=== PATIENT | male | born 1955 ===

== ENCOUNTER 2024-12-22 13:40 | Outpatient (AMB) | payer MEDICARE, SELFPAY ==
[2024-12-22 13:44] VITALS: BP 134/74; PULSE 60; O2SAT 94; BMI 39.6
--- NOTE | 2024-12-22 13:44 | MHC.PC.OV ---
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 Accompanied by: Self / Same As Patient Allergies omeprazole Adverse Reaction (Intermediate, Verified 12/22/24 14:07) vasculitis Medication List - Last Reconciled 12/22/24 by Dom Lorenzo PA-C meclizine 12.5 mg PO TID 10 days metformin 1,000 mg PO BID omeprazole 20 mg PO DAILY 30 days Tobacco use date assessed: 12/22/24 Fall risk assessment: No Falls in past year Last assessed Fall Risk: 12/22/24 Dental Screening Dental Screen Date: 12/22/24 Did you have a dental visit in the last 12 months?: Yes Did you have a dental problem in the last 6 months where you did not have access to dental care?: No Was dental information given to patient?: Patient has dentist HPI f/u DMII HPI Details Patient is 69-year-old male here today for a follow-up visit ? Patient has a past medical history significant GERD, type 2 diabetes elevated blood pressure readings, erectile dysfunction. Concern--> Insomnia is a significant concern, with reported difficulties initiating and maintaining sleep over the past several months. Previous medication trials provided by a friend led to excessive sedation without improving daytime energy, hence were discontinued. He achieves only one to two hours of sleep a night, resulting in fatigue. The patient associates frequent nighttime urination with both diabetes and potential BPH, impacting sleep quality. .. Type 2 diabetes: Patient continues on metformin 1000 b.i.d there has been a significant improvement in his blood sugars.. Today's A1c is 6.1 .. Class 2 Obesity:? Has noted weight gain since last office visit, today's BMI at 39.6. Does admit to some dietary indiscretion and being a bit less active over the winter. He does understand his BMI is well over 30 and has been working on being more physically active to reduce his weight. GERD:? He does use omeprazole on a p.r.n. basis with good effect on reducing his GERD symptoms.. We did discuss the possibility of the side effect of vasculitis as it was thought to be omeprazole in the cause of his vasculitis rash. Patient does understand in his willing to take the risk. ? PFSH Medical History Rash Left shoulder pain Obesity Left wrist fracture Surgical History Hx of colonoscopy Family History Father Diabetes mellitus Mother Diabetes mellitus Social History Housing: Apartment Alcohol intake: current Alcohol intake frequency: holidays/special occasions only Patient Tobacco Use Status: Never used Tobacco e-Cigarette/Vaping Use: Never Used Second Hand Smoke Exposure: No service: No Current occupational status: retired Cognitive needs: No Hearing needs: No Vision needs: No Questionnaire PHQ-9 Over the last 2 weeks, how often have you been bothered by any of the following problems? 1. Little interest or pleasure in doing things: not at all 2. Feeling down, depressed, or hopeless: not at all 3. Trouble falling or staying asleep, or sleeping too much: not at all 4. Feeling tired or having little energy: not at all 5. Poor appetite or overeating: not at all 6. Feeling bad about yourself - or that you are a failure or have let yourself or your family down: not at all 7. Trouble concentrating on things, such as reading the newspaper or watching television: not at all 8. Moving or speaking so slowly that other people could have noticed. Or the opposite - being so fidgety or restless that you have been moving around a lot more than usual: not at all 9. Thoughts that you would be better off or of hurting yourself in some way: not at all Total score: 0 Depression Screening Interpretation: Negative Depression Screening Done: Yes 63020 - PHQ-9 Billing: Yes Source: Developed by Drs. Claus Waite, Tashia Su, Murray Danielson and colleagues, with an educational shayne from [employer]. Thrive Questionnaire Date Thrive assessed: 12/22/24 I am a: Patient What is your living situation today?: I have a steady place to live Within the past 12 months, did the food you bought not last and you didn't have the money to get more?: Never true Within the past 12 months, did you worry whether your food would run out before you got money to buy more?: Never true Do you have trouble paying for medicines?: No Do you have trouble getting transportation to medical appointments?: No Do you have trouble paying your heating and electricity bill?: No Do you have trouble taking care of your child, family member or friend?: No Do you have trouble with day-to-day activities such as bathing, preparing meals, shopping, managing finances, etc.?: No Are you currently unemployed and looking for a job?: No Are you interested in more education?: No Please select the resources that you would like help with: None Currently or been in a relationship where the following occur: No concerns reported THRIVE Score: 0 AUDIT C Alcohol Use Questionnaire (AUDIT-C) 1. How often do you have a drink containing alcohol?: Never 3. How often do you have six or more drinks on one occasion?: Never Total Score: 0 ERIKA-7 AMB Questionnaire ERIKA-7 Date ERIKA - 7 assessed: 12/22/24 Feeling nervous, anxious, or on edge: 0 = Not at all Not being able to stop or control worryin = Not at all Worrying too much about different things: 0 = Not at all Trouble relaxin = Not at all Being so restless that it is hard to sit still: 0 = Not at all Becoming easily annoyed or irritable: 0 = Not at all Feeling afraid as if something awful might happen: 0 = Not at all Total ERIKA-7 score (0-4 normal; 5-9 mild; 10-14 moderate; 15-21 severe): 0 Source: Developed by Drs. Claus Waite, Tashia Su, Murray Danielson and colleagues, with an educational shayne from [employer]. ERIKA-7 Assessment Billing ERIKA-7 Assessment Tool: ERIKA-7 Assessment 36143 Review of Systems Const Denies headache(s) Eyes Denies loss of vision ENT Denies vertigo, Denies dizziness, Denies headache(s) and Denies sore throat Card Denies chest pain, Denies leg edema and Denies lightheadedness Resp Denies cough, Denies hemoptysis and Denies wheezing GI Denies abdominal pain, Denies melena, Denies constipation, Denies diarrhea and Denies vomiting Denies dysuria, Denies urinary frequency and Denies urinary urgency Musc Denies arthralgias, Denies joint swelling, Denies numbness and Denies tingling Neuro Denies Abnormal speech present, Denies behavioral changes, Denies vertigo, Denies dizziness, Denies headache(s), Denies loss of vision, Denies memory loss, Denies numbness and Denies tingling Psych Denies anxiety, Denies behavioral changes, Denies depression, Denies memory loss and Denies panic attacks Sammy/Lymph Denies easy bleeding and Denies easy bruising Aller/Immun Denies wheezing Physical exam (Primary Care) Vital Signs: Last Vital Signs Pulse 60 12/22/24 13:44 BP 134/74 12/22/24 13:44 Pulse Ox 94 12/22/24 13:44 Oxygen Delivery Method Room Air 12/22/24 13:44 BMI result Body Mass Index 39.6 BMI Assessment/Plan discussion: High BMI High, discussed plan: lifestyle, weight reduction, dietary and physical activity Tobacco/Smoking Status: Tobacco use Status Tobacco use date assessed 12/22/24 12/22/24 13:45 Patient Tobacco Use Status Never used Tobacco 12/22/24 13:45 e-Cigarette/Vaping Use Never Used 12/22/24 13:45 PHQ-9: PHQ-9 Score PHQ-9: Total score 0 12/22/24 14:14 Depression Screening Interpretation: Negative Thrive Assessment: Date of Thrive Assessment Date Thrive assessed 12/22/24 12/22/24 13:45 Currently or been in a relationship where the following occur: No concerns reported Const General: healthy appearing, no acute distress, alert and awake Nutritional Appearance: well nourished Orientation/consciousness: oriented to person, oriented to place and oriented to time HENMT Ears: TM's normal bilaterally General nose exam: Normal nasal mucous membranes and turbinates present Eyes Conjunctivae: conjunctivae normal Sclerae: sclerae normal Pupils: Equal, round and reactive pupils present Neck Neck: Yes no lymphadenopathy and Yes no JVD Thyroid: Thyroid normal Carotids: no bruits Resp Effort & Inspection: normal respiratory effort and not tachypneic Auscultation: no crackles, no rales, no rhonchi and no wheezes Cardio Rate: regular rate Rhythm: regular rhythm Heart sounds: no murmurs and normal S1 and S2 GI Palpation (GI): Soft to palpation, nontender, no hepatomegaly and no splenomegaly Auscultation: normal bowel sounds Skin General skin exam: no rashes or lesions noted and dry skin Neuro General: oriented to person, oriented to place and oriented to time Cranial nerves: Yes Equal, round and reactive pupils present Speech: No Abnormal speech present Gait exam (Neuro): Normal gait present Motor exam (neuro): no tremor noted Extrem Right upper extremity: full ROM Left upper extremity: full ROM Right lower extremity: full ROM; no edema Left lower extremity: full ROM; no edema Psych Mental Status: mental status grossly normal Speech and movement: Normal speech and movement present Affect: normal affect Attitude: cooperative Thought process: Normal thought process present Results AMB Hemoglobin A1c AMB Hemoglobin A1c 6.1 % Last Edit by DIAMOND Desai on 12/22/24 14:15 Results Reviewed Results Reviewed: Laboratory Last Values Hgb A1c (Clinic) 6.1 % (4.0-6.0) H 12/22/24 14:15 Coding Level of Care Code Est Pt Level 4 (90898) Diagnoses Type 2 diabetes mellitus with hyperglycemia, without long-term current use of insulin E11.65 Diabetes mellitus complication status: with hyperglycemia Diabetes mellitus [facility] insulin use: without [employer] use Mixed hyperlipidemia E78.2 Hyperlipidemia type: mixed hyperlipidemia Primary insomnia F51.01 Insomnia type: primary Gastroesophageal reflux disease without esophagitis K21.9 Esophagitis presence: without esophagitis Class 2 obesity E66.812 Additional Codes ERIKA-7 Assessment Billing - ERIKA-7 Assessment Tool: ERIKA-7 Assessment 82987 ([id number]) PHQ-9 - 71194 - PHQ-9 Billing: Yes ([id number]) Assessment & Plan Assessment & Plan (1) DMII (diabetes mellitus, type 2): Code(s): E11.9 - Type 2 diabetes mellitus without complications Category: Medical Qualifiers: Diabetes mellitus complication status: with hyperglycemia Diabetes mellitus [facility] insulin use: without [facility] use Qualified Code(s): E11.65 - Type 2 diabetes mellitus with hyperglycemia Plan: Patient's type 2 diabetes well controlled with A1c today at 6.1. He will continue his current dose of metformin a 1000 b.i.d.. Goal A1c is to remain below 7.0 (2) HLD (hyperlipidemia): Code(s): E78.5 - Hyperlipidemia, unspecified Category: Medical Qualifiers: Hyperlipidemia type: mixed hyperlipidemia Qualified Code(s): E78.2 - Mixed hyperlipidemia Plan: Patient's most recent lipid panel showing borderline high LDL, we did discuss starting cholesterol medication though would like to hold off and work on dietary and lifestyle modifications. Goal LDL is to be below 100 (3) Insomnia: Code(s): G47.00 - Insomnia, unspecified Category: Medical Qualifiers: Insomnia type: primary Qualified Code(s): F51.01 - Primary insomnia Plan: Prescribed hydroxyzine for sleep issues, with instructions to use only as needed. Advised on avoiding sedative effects and potential drug interactions. (4) GERD (gastroesophageal reflux disease): Code(s): K21.9 - Gastro-esophageal reflux disease without esophagitis Category: Medical Qualifiers: Esophagitis presence: without esophagitis Qualified Code(s): K21.9 - Gastro-esophageal reflux disease without esophagitis Plan: Refilled omeprazole prescription and advised its use based on dietary needs. Discuss avoidance of dietary triggers and symptom review at next visit. (5) Class 2 obesity: Code(s): E66.812 - Obesity, class 2 Category: Medical Plan: Patient does understand his BMI is over 35 and work on being more physically active and adapting to better eating habits to reduce his weight Orders: Orders AMB Hemoglobin A1c Today E11.65 - Type 2 diabetes mellitus with hyperglycemia Medications: New hydroxyzine HCl 25 mg PO BEDTIME PRN 30 tabs 0RF sleep issues 30 days G47.00 - Insomnia, unspecified Refilled omeprazole 20 mg PO DAILY 30 caps 0RF 30 days K21.9 - Gastro-esophageal reflux disease without esophagitis Discontinued meclizine Discontinued Reason: Doctor's Order 12.5 mg PO TID 10 days 30 tabs 1RF dizziness H81.13 - Benign paroxysmal vertigo, bilateral
== END 2024-12-22 14:19 | disposition home or self-care (01) ==
LOC: HO.HMCH 13:41
PROVIDERS: PCP Physician Assistant; Visit Provider Physician Assistant
DX: E11.65 Type 2 diabetes mellitus with hyperglycemia (principal); E66.812 Obesity, class 2; Z68.39 Body mass index [BMI] 39.0-39.9, adult; E78.2 Mixed hyperlipidemia; F51.01 Primary insomnia; K21.9 Gastro-esophageal reflux disease without esophagitis

== ENCOUNTER → 2024-12-22 13:40 | Outpatient (BNVA) | payer MEDICARE, SELFPAY | PROVIDERS: PCP Physician Assistant; Visit Provider Physician Assistant | DX: E11.65 Type 2 diabetes mellitus with hyperglycemia (principal); E78.2 Mixed hyperlipidemia; F51.01 Primary insomnia; K21.9 Gastro-esophageal reflux disease without esophagitis; E66.812 Obesity, class 2 | CPT/HCPCS: 83036; 96127; 99212 ==

== ENCOUNTER 2025-06-24 13:15 | Outpatient (AMB) | payer MEDICARE, SELFPAY ==
--- NOTE | 2025-06-24 13:16 | MHC.PC.OV ---
Vital Signs 06/24/25 13:17 Height 5 ft 8 in Weight 259 lb 8 oz BMI 39.5 BP 146/86 H Blood Pressure Location Lt brachial Position Sitting Respiration 18 Pulse 65 Pulse Source Pulse Oximeter Temp 93.7 F L Temp Source Temporal Artery Scan Pulse Oximetry (%) 94 Oxygen Delivery Method Room Air Intake Visit Reasons: Annual exam - see comments Mechanic Senior Required: No Accompanied by: Self / Same As Patient Allergies omeprazole Adverse Reaction (Intermediate, Verified 06/24/25 13:17) vasculitis Tobacco use date assessed: 06/24/25 Fall risk assessment: No Falls in past year Last assessed Fall Risk: 06/24/25 Dental Screening Dental Screen Date: 06/24/25 Did you have a dental visit in the last 12 months?: No Did you have a dental problem in the last 6 months where you did not have access to dental care?: No Was dental information given to patient?: No HPI Annual exam - see comments HPI Details Patient is 69-year-old male here today for a follow-up visit ? Patient has a past medical history significant GERD, type 2 diabetes elevated blood pressure readings, erectile dysfunction. Concern--> The patient reports experiencing visual disturbances, including seeing clouds and bugs when his eyes are closed. These symptoms have been occurring recently and are concerning to the patient. He is interested in seeing an steamboat captain for diabetic eye exam Bilateral foot pain: He also reports heel pain, particularly in the morning, which is consistent with plantar fasciitis. The pain is most severe during the first few steps after getting out of bed but improves as he continues to walk. .. Type 2 diabetes: Patient continues on metformin 1000 b.i.d there has been a significant improvement in his blood sugars.. Today's A1c is 6.1 .. Class 2 Obesity:? Has noted weight gain since last office visit, today's BMI at 39.6. Does admit to some dietary indiscretion and being a bit less active over the winter. He does understand his BMI is well over 30 and has been working on being more physically active to reduce his weight. GERD:? He does use omeprazole on a p.r.n. basis with good effect on reducing his GERD symptoms.. We did discuss the possibility of the side effect of vasculitis as it was thought to be omeprazole in the cause of his vasculitis rash. Patient does understand in his willing to take the risk. Vaccines: Up-to-date with tetanus vaccine, considering flu vaccine, needs pneumonia vaccine Colorectal cancer screening: Needs colorectal cancer screening PFSH Medical History Rash Left shoulder pain Obesity Left wrist fracture Surgical History Hx of colonoscopy Family History Father Diabetes mellitus Mother Diabetes mellitus Social History Housing: Apartment Alcohol intake: current Alcohol intake frequency: holidays/special occasions only Patient Tobacco Use Status: Never used Tobacco e-Cigarette/Vaping Use: Never Used Second Hand Smoke Exposure: No service: No Current occupational status: retired Cognitive needs: No Hearing needs: No Vision needs: No Questionnaire Thrive Questionnaire Date Thrive assessed: 12/22/24 ERIKA-7 AMB Questionnaire ERIKA-7 Date ERIKA - 7 assessed: 12/22/24 Source: Developed by Drs. Claus Waite, Tashia Su, Murray Danielson and colleagues, with an educational shayne from [employer]. Review of Systems Const Denies body aches, Denies chills, Denies excessive sweating, Denies fatigue, Denies fever(s) and Denies headache(s) Eyes Denies blurry vision ENT Denies dysphagia, Denies vertigo, Denies dizziness, Denies headache(s), Denies hearing loss and Denies tinnitus Card Denies chest pain, Denies chest pain with activity, Denies syncope, Denies irregular heart rhythm and Denies dyspnea Resp Denies chest congestion, Denies cough, Denies hemoptysis, Denies dyspnea and Denies wheezing GI Denies abdominal pain, Denies melena, Denies hematochezia, Denies coffee ground emesis, Denies dysphagia, Denies diarrhea, Denies nausea and Denies vomiting Denies difficulty urinating, Denies dysuria, Denies urinary frequency, Denies urinary hesitancy and Denies urinary urgency Musc Denies arthralgias, Denies limited range of motion, Denies muscle cramps and Denies muscle weakness Skin/Breast Denies rash and Denies skin ulcer Neuro Denies Abnormal speech present, Denies confusion, Denies vertigo, Denies dizziness, Denies syncope, Denies headache(s), Denies memory loss and Denies seizure-like activity Psych Denies anxiety, Denies confusion, Denies depression, Denies memory loss, Denies panic attacks and Denies paranoia Endo Denies excessive sweating, Denies fatigue, Denies flushing, Denies polydipsia and Denies polyuria Aller/Immun Denies wheezing Physical exam (Primary Care) Vital Signs: Last Vital Signs Temp 93.7 F L 06/24/25 13:17 Pulse 65 06/24/25 13:17 Resp 18 06/24/25 13:17 BP 146/86 H 06/24/25 13:17 Pulse Ox 94 06/24/25 13:17 Oxygen Delivery Method Room Air 06/24/25 13:17 BMI result Body Mass Index 39.5 BMI Assessment/Plan discussion: High BMI High, discussed plan: lifestyle, weight reduction, dietary and physical activity Tobacco/Smoking Status: Tobacco use Status Tobacco use date assessed 06/24/25 06/24/25 13:24 Patient Tobacco Use Status Never used Tobacco 06/24/25 13:24 e-Cigarette/Vaping Use Never Used 06/24/25 13:24 Thrive Assessment: Date of Thrive Assessment Date Thrive assessed 12/22/24 06/24/25 13:24 Const Other: Obese General: cooperative, comfortable, no acute distress, alert and awake; No confusion Orientation/consciousness: oriented to person, oriented to place, patient oriented x3 and No confusion HENMT Head: Yes normocephalic Ears: external ears normal and TM's normal bilaterally Face and sinus: No sinus tenderness Mouth: Normal oral and palatal mucosa present and tongue normal Teeth and gingiva: dentition normal and gingiva normal Throat: Yes posterior oropharynx normal, Yes tonsils normal and Yes uvula midline Eyes Conjunctivae: conjunctivae normal Sclerae: sclerae normal Pupils: Equal, round and reactive pupils present EOM: EOMs intact bilaterally Direct Ophthalmoscopy: No no photophobia Neck Neck: Yes no lymphadenopathy, No tender and Yes no JVD Thyroid: Thyroid normal Carotids: no bruits Chest Chest palpation & inspection: no tenderness Resp Effort & Inspection: normal respiratory effort, no audible wheezes, not labored and no stridor Auscultation: no crackles, no rales, no rhonchi and no wheezes Cardio Jugular venous distension: no JVD Rate: regular rate, not bradycardic and not tachycardic Rhythm: regular rhythm Bruits: no carotid bruits Peripheral pulses: Peripheral pulses 2+ throughout GI Inspection: Yes normal to inspection, No abdominal wall ecchymosis and No visible herniation Palpation (GI): Soft to palpation, nontender, no guarding, not rigid and No hepatosplenomegaly present Auscultation: normoactive bowel sounds General: Yes no CVA tenderness Back/Spine/Pelvis Back: no CVA tenderness and No back tenderness Cervical Spine: cervical ROM normal Thoracic/Lumbar Spine: thoracic and lumbar spine normal to inspection, straight leg raise negative bilaterally, No thoraco-lumbar ROM limited and No lumbar spinal tenderness Skin Lesions: no lesions Rashes: no rashes Wounds: no wounds Neuro General: oriented to person, oriented to place, patient oriented x3, CN's II-XI intact bilaterally and No confusion Cranial nerves: Yes Equal, round and reactive pupils present and Yes Normal accommodation reflex present Cognition (Neuro): normal cognition Speech: No Abnormal speech present Gait exam (Neuro): Normal gait present Motor exam (neuro): 5/5 motor strength present throughout Extrem Right upper extremity: full ROM; no cyanosis Left upper extremity: full ROM; no cyanosis Right lower extremity: no edema Left lower extremity: no edema Psych Appearance: grossly normal Mental Status: mental status grossly normal Affect: normal affect Attitude: cooperative Thought process: Normal thought process present Coding Level of Care Code Est Pt Prev Care >65y(88799) Diagnoses Annual physical exam Z00.00 Type 2 diabetes mellitus with hyperglycemia, without long-term current use of insulin E11.65 Diabetes mellitus superintendent container terminal insulin use: without residential use Diabetes mellitus complication status: with hyperglycemia Mixed hyperlipidemia E78.2 Hyperlipidemia type: mixed hyperlipidemia Primary insomnia F51.01 Insomnia type: primary Plantar fasciitis, bilateral M72.2 Colon cancer screening Z12.11 Elevated blood pressure reading R03.0 Class 2 obesity E66.812 Assessment & Plan Assessment & Plan (1) Annual physical exam: Code(s): Z00.00 - Encounter for general adult medical examination without abnormal findings Category: Medical Plan: As per HPI (2) DMII (diabetes mellitus, type 2): Code(s): E11.9 - Type 2 diabetes mellitus without complications Category: Medical Qualifiers: Diabetes mellitus superintendent container terminal insulin use: without superintendent container terminal use Diabetes mellitus complication status: with hyperglycemia Qualified Code(s): E11.65 - Type 2 diabetes mellitus with hyperglycemia Plan: Patient's type 2 diabetes well controlled with A1c today at 6.2. He will continue his current dose of metformin a 1000 b.i.d.. Goal A1c is to remain below 7.0 For the visual disturbances, a referral to an quality measurement specialist was discussed to evaluate the symptoms further and rule out any underlying conditions (3) HLD (hyperlipidemia): Code(s): E78.5 - Hyperlipidemia, unspecified Category: Medical Qualifiers: Hyperlipidemia type: mixed hyperlipidemia Qualified Code(s): E78.2 - Mixed hyperlipidemia Plan: Patient's most recent lipid panel showing borderline high LDL, we did discuss starting cholesterol medication though would like to hold off and work on dietary and lifestyle modifications. Goal LDL is to be below 100 (4) Insomnia: Code(s): G47.00 - Insomnia, unspecified Category: Medical Qualifiers: Insomnia type: primary Qualified Code(s): F51.01 - Primary insomnia Plan: Prescribed hydroxyzine for sleep issues, with instructions to use only as needed. Advised on avoiding sedative effects and potential drug interactions. (5) Plantar fasciitis, bilateral: Code(s): M72.2 - Plantar fascial fibromatosis Category: Medical Plan: Management of plantar fasciitis includes recommending anti-inflammatory medications such as ibuprofen or naproxen, and physical therapy exercises like stretching the foot with a towel and rolling a frozen water bottle under the foot. (6) Colon cancer screening: Code(s): Z12.11 - Encounter for screening for malignant neoplasm of colon Category: Medical Plan: Patient willing to do Cologuard (7) Elevated blood pressure reading: Code(s): R03.0 - Elevated blood-pressure reading, without diagnosis of hypertension Category: Medical Plan: Noted elevated blood pressure reading today in office. Advised on starting lisinopril for renal protection and blood pressure control though patient declines as he is not interested in more pills. He will try to reduce his sodium intake and will lose weight. Goal blood pressure to be below 140/90 (8) Class 2 obesity: Code(s): E66.812 - Obesity, class 2 Category: Medical Plan: understand his BMI is over 35 and will work on being more physically active and adapt to better eating habits to reduce his weight. Orders: Orders Prostate Specific Antigen Scr Today E11.65 - Type 2 diabetes mellitus with hyperglycemia, Z12.5 - Encounter for screening for malignant neoplasm of prostate Comprehensive [place]. Panel Fast Today E11.65 - Type 2 diabetes mellitus with hyperglycemia Complete Blood Count no Diff Today E11.65 - Type 2 diabetes mellitus with hyperglycemia Lipid Panel Today E11.65 - Type 2 diabetes mellitus with hyperglycemia Microalbumin, Random (w Creat) Today E11.65 - Type 2 diabetes mellitus with hyperglycemia Referrals Cologuard Test Z12.11 - Encounter for screening for malignant neoplasm of colon Ophthalmology Referral E11.65 - Type 2 diabetes mellitus with hyperglycemia Medications: New celecoxib (Celebrex) 200 mg PO DAILY 15 caps 1RF 15 days M72.2 - Plantar fascial fibromatosis Refilled metformin 1,000 mg PO BID 180 tabs 1RF E11.9 - Type 2 diabetes mellitus without complications
[2025-06-24 13:17] VITALS: BP 146/86; PULSE 65; RESP 18; TEMP 34.3; O2SAT 94; BMI 39.5
== END 2025-06-24 13:51 | disposition home or self-care (01) ==
LOC: HO.HMCH 13:15
PROVIDERS: PCP Physician Assistant; Visit Provider Physician Assistant
DX: Z00.00 Encounter for general adult medical examination without abnormal findings (principal); E11.65 Type 2 diabetes mellitus with hyperglycemia; E66.812 Obesity, class 2; Z68.29 Body mass index [BMI] 29.0-29.9, adult; E78.2 Mixed hyperlipidemia; F51.01 Primary insomnia; M72.2 Plantar fascial fibromatosis; Z12.11 Encounter for screening for malignant neoplasm of colon; R03.0 Elevated blood-pressure reading, without diagnosis of hypertension

== ENCOUNTER → 2025-06-24 13:15 | Outpatient (BNVA) | payer MEDICARE, SELFPAY | PROVIDERS: PCP Physician Assistant; Visit Provider Physician Assistant | DX: Z00.00 Encounter for general adult medical examination without abnormal findings (principal); K21.9 Gastro-esophageal reflux disease without esophagitis; E11.9 Type 2 diabetes mellitus without complications; N52.9 Male erectile dysfunction, unspecified; M79.672 Pain in left foot; M79.671 Pain in right foot; E66.812 Obesity, class 2; E11.65 Type 2 diabetes mellitus with hyperglycemia; E78.2 Mixed hyperlipidemia; F51.01 Primary insomnia; M72.2 Plantar fascial fibromatosis; R03.0 Elevated blood-pressure reading, without diagnosis of hypertension; Z68.39 Body mass index [BMI] 39.0-39.9, adult | CPT/HCPCS: 99397 ==